=== PATIENT | male | born 1955 | race Caucasian/White ===

== ENCOUNTER 2025-06-27 14:21 | Emergency (ER) | payer MEDICARE, OTHER ==
[~2025-06-27] VITALS: Ht 185.4 cm; Wt 86.4 kg
[~2025-06-27 14:21] MED LIST: ATEN-72 PO; IBUP-2343 PO; PERCT PO; [UNRECOGNIZED DRUG - CODE] PO
[2025-06-27 14:38] VITALS: TEMP 98.1
[2025-06-27 15:52] VITALS: BP 147/90; PULSE 82; RESP 18; O2SAT 97
== END 2025-06-27 17:36 | disposition home or self-care (01) ==
LOC: EMS 14:21
DX: R44.3 Hallucinations, unspecified (principal); J45.909 Unspecified asthma, uncomplicated; I10 Essential (primary) hypertension; N40.0 Benign prostatic hyperplasia without lower urinary tract symptoms; I25.10 Atherosclerotic heart disease of native coronary artery without angina pectoris; F19.11 Other psychoactive substance abuse, in remission; Z79.82 Long term (current) use of aspirin; Z79.899 Other long term (current) drug therapy; Z85.6 Personal history of leukemia; Z90.49 Acquired absence of other specified parts of digestive tract; Z98.890 Other specified postprocedural states
CPT/HCPCS: 99284; Z7502